=== PATIENT | female | born 1965 | race Caucasian/White ===

== ENCOUNTER 2020-04-20 08:46 | Outpatient (CLI) | payer BC, SELFPAY ==
--- NOTE | ~2020-04-20 | CT_ITS ---
EXAMINATION: CT abdomen pelvis w con INDICATION: Malignant neoplasm of the sigmoid colon TECHNIQUE: Computed tomographic images of the abdomen and pelvis were obtained after the administrati on of 100 cc of Omnipaque 350 intravenous contrast. The dose-length product (DLP) was 292.94 mGy-cm. Automated exposure control and iterative reconstruction technique were employed. COMPARISON: 03/11/2019 FINDINGS: The lung bases are clear. The heart size is normal. Cysts of the liver measure up to 3 mm r ight hepatic lobe. Punctate calcifications in an otherwise normal spleen likely represent healed gran ulomatous disease. The pancreas, gallbladder, and adrenal glands are normal. The kidneys are unremark able. Surgical changes are noted in the sigmoid colon. There is no free intraperitoneal gas or eviden ce of bowel obstruction. No pathologically enlarged abdominal or pelvic lymph nodes are identified. A moderate volume of colonic stool is present. The appendix is normal. There is mild lumbar spondylosi s. IMPRESSION: 1. Surgical changes in the sigmoid colon without evidence of recurrent or metastatic disease. Reviewed, dictated and finalized at location A. NOCHEMIST IMPRESSION: 1. Surgical changes in the sigmoid colon without evidence of recurrent or metas tatic disease.
== END 2020-04-20 08:47 | disposition home or self-care (01) ==
PROVIDERS: PCP Family Medicine; Visit Provider Internal Medicine Medical Oncology
DX: C18.7 Malignant neoplasm of sigmoid colon (principal); M47.816 Spondylosis without myelopathy or radiculopathy, lumbar region
CPT/HCPCS: 74177; Q9967

== ENCOUNTER → 2022-09-20 14:16 | Outpatient (CLI) | payer OTHER, SELFPAY ==
--- NOTE | ~2022-09-20 | MM_ITS ---
EXAMINATION: MM screening ange BI w narendra HISTORY: Screening TECHNIQUE: Craniocaudal and mediolateral oblique 3-D tomosynthesis images were obtained and synthetic 2-D images were generated. CAD analysis was submitted and interpreted. COMPARISON: Comparison to multiple prior studies sequentially, with oldest reviewed study dated 03/18. BREAST PARENCHYMAL COMPOSITION: The breasts are heterogeneously dense, which may obscure small masses FINDINGS: There is no evidence of suspicious mass, calcification, or architectural distortion to sugg est malignancy in either breast. There has been no suspicious interval change. IMPRESSION: 1. No mammographic evidence of malignancy. 2. Recommend routine screening mammography in one year. BI-RADS Category 1: Negative Reviewed, dictated and finalized at location A.
== END ==
PROVIDERS: PCP Obstetrics & Gynecology; Visit Provider Obstetrics & Gynecology
DX: Z12.31 Encounter for screening mammogram for malignant neoplasm of breast (principal)
CPT/HCPCS: 77063; 77067

== ENCOUNTER 2023-08-22 06:53 | Day surgery (SDC) | payer OTHER, SELFPAY ==
[2023-08-01 09:30] VITALS: BMI 23.8
[2023-08-12 12:30] VITALS: BMI 23.3
[2023-08-22 08:03] VITALS: BP 120/93; PULSE 77; RESP 16; TEMP 36.4; O2SAT 100; BMI 24.2
[2023-08-22] MEDS: LACTATED RINGERS 1,000 ML 150 ML IV CONT (08:21)
--- NOTE | 2023-08-22 08:34 | P.PNAN_ITS ---
Anes - Initial Pre Proc Eval Procedure: Operation Date: 08/22/23 09:30 Proposed Procedures p Colonoscopy - Luis Antonio Pyle MD Date/Time: 08/22/23 08:34 Surgeon: Luis Antonio Pyle MD Pre Op Diagnosis: History of Colon Cancer Patient Data Age: 57 Gender: F Height: 1.57 m Weight: 60 kg Last Vital Signs Temp 36.4 C 08/22/23 08:03 Pulse 77 08/22/23 08:03 Resp 16 08/22/23 08:03 BP 120/93 H 08/22/23 08:03 Pulse Ox 100 08/22/23 08:03 O2 Del Method Room Air 08/22/23 08:03 Allergies Allergy/AdvReac Type Severity Reaction Status Date / Time No Known Allergies Allergy Verified 08/22/23 07:57 Home Medications Medication Instructions Recorded Confirmed Type estradiol-norethindrone acet 0.5 1 tablet PO DAILY 08/06/23 08/22/23 History mg-0.1 mg tablet loratadine 10 mg tablet (Claritin) 10 mg PO DAILY PRN ALLERGIES 08/12/23 08/22/23 History Patient hx anesthesia problems: none Family hx anesthesia problems: none Results Review: All pre-operative results and documents have been reviewed as part of the pre- operative evaluation. [facility] Past Medical History Medical History (Updated 08/22/23 @ 08:34 by Kilo Taylor MD) Cancer of sigmoid Surgical History Surgical History (Updated 08/22/23 @ 08:34 by Kilo Taylor MD) H/O colectomy Family History Family History Mother Hypertension Father Malignant neoplasm of prostate Other Diabetes mellitus Family history of allergic disorder Family history of cardiovascular disease Social History Social History Smoking status: Never smoker Alcohol intake: current Drinks per week: 7 Substance use: never Substance use type: does not use Living arrangements: with family Spiritual care concerns: No Anes - Eval Final PreProcedure Day of Procedure 08/22/23 08:34 Patient weight: normal Heart: regular rate and rhythm Lungs: clear to auscultation Airway: Mallampati scale class II Neurological: alert and oriented Last oral intake: >/= 8 hours ASA classification: II Emergent: no Anesthetic plan: proceed Anesthesia type and monitoring: general GIVS and standard monitoring Results Review: All pre-operative results and documents have been reviewed as part of the pre- operative evaluation. Informed Consent: The patient's anesthetic plan and its attendant risks and benefits were discussed with the patient/family/POA. Questions were solicited and answers provided to the satisfaction of the patient/family/POA.
--- NOTE | 2023-08-22 08:40 | PM.HPGS ---
History of Present Illness History of Present Illness Consent: Risks, benefits, and alternatives have been discussed and questions answered. Patient agrees to proceed with procedure. Chief complaint: History of Colon Cancer Narrative: Carmen Roberts is a 57 year old female presents for surveillance colonoscopy. Patient has a history of colon cancer that was stage III resected in 2014. Currently felt to be free of disease. Patient reports that her current weight appetite and bowel movements are normal. Patient denies abdominal pain. She has had no bleeding. Family history is noncontributory. Review of Systems Review of Systems: Review of systems noncontributory. [facility] Past Medical History Medical History (Updated 08/22/23 @ 08:42 by Luis Antonio Pyle MD) Cancer of sigmoid Surgical History Surgical History (Updated 08/22/23 @ 08:34 by Kilo Taylor MD) H/O colectomy Family History Family History Mother Hypertension Father Malignant neoplasm of prostate Other Diabetes mellitus Family history of allergic disorder Family history of cardiovascular disease Social History Social History Smoking status: Never smoker Alcohol intake: current Drinks per week: 7 Substance use: never Substance use type: does not use Living arrangements: with family Spiritual care concerns: No Meds Home Medications and Allergies Home Medications Medication Instructions Recorded Confirmed Type estradiol-norethindrone acet 0.5 1 tablet PO DAILY 08/06/23 08/22/23 History mg-0.1 mg tablet loratadine 10 mg tablet (Claritin) 10 mg PO DAILY PRN ALLERGIES 08/12/23 08/22/23 History Allergies Allergy/AdvReac Type Severity Reaction Status Date / Time No Known Allergies Allergy Verified 08/22/23 07:57 Vital Signs Vital Signs - 24 hr 08/22/23 08:03 Temperature 97.6 F Pulse Rate 77 Respiratory Rate 16 Blood Pressure 120/93 H Pulse Oximetry 100 Oxygen Delivery Room Air Exam Narrative: Physical exam reveals patient to be alert. Vital signs stable. HEENT exam is unremarkable. Patient is anicteric. Lungs are clear to auscultation and percussion. Heart is without murmur or extra sounds. Abdomen bowel sounds are present soft nontender with no organomegaly. Digital external rectal exam normal. Assessment and Plan Assessment and plan (1) History of colon cancer: Code(s): Z85.038 - Personal history of other malignant neoplasm of large intestine Status: Acute Assessment and Plan: Patient has a history of colon cancer of the sigmoid colon resected in 2014. Plan for surveillance colonoscopy at 3 year intervals. Continue complete metabolic panel, CBC and CEA level at least annually.
[2023-08-22] MEDS: SIMETHICONE ORAL SUSPENSION 20 MG/0.3 ML 30 ML BOTTLE 0.6 ML IRRIGATION (09:28)
[2023-08-22 09:34] VITALS: BP 113/66; PULSE 74; RESP 14; O2SAT 99
[2023-08-22 09:44] VITALS: BP 111/67; PULSE 69; RESP 14; O2SAT 100
--- NOTE | 2023-08-22 09:53 | WPDANESPN ---
Anes - Prog Note Post-Op Date/Time: 08/22/23 09:53 Cardiovascular status: normal Respiratory status: normal Airway patency: baseline Mental status: baseline Post-Op hydration status: normal Vital Signs: Last Vital Signs Temp 36.4 C 08/22/23 08:03 Pulse 69 08/22/23 09:44 Resp 14 08/22/23 09:44 BP 111/67 08/22/23 09:44 Pulse Ox 100 08/22/23 09:44 O2 Del Method Room Air 08/22/23 09:44 Pain Score (VAS): 0/10 I/O: Intake & Output 08/21/23 08/22/23 08/22/23 23:59 07:59 15:59 Intake Total 500 Balance 500 Patient Feedback: Patient satisfied with anesthetic care.
[2023-08-22 09:54] VITALS: BP 102/66; PULSE 69; RESP 14; O2SAT 100
== END 2023-08-22 10:02 | disposition home or self-care (01) ==
PROVIDERS: PCP Student in an Organized Health Care Education/Training Program; Visit Provider Internal Medicine Gastroenterology
PROC: 0DJD8ZZ Inspection of Lower Intestinal Tract, Via Natural or Artificial Opening Endoscopic (ICD-10-PCS; CPT 45378; principal; 2023-08-22 09:30)
DX: Z85.038 Personal history of other malignant neoplasm of large intestine (principal); K64.8 Other hemorrhoids
CPT/HCPCS: 45378

== ENCOUNTER 2023-11-25 12:29 | Outpatient (CLI) | payer OTHER, SELFPAY ==
--- NOTE | ~2023-11-25 | MM_ITS ---
EXAMINATION: MM screening ange BI w narendra HISTORY: Screening TECHNIQUE: Craniocaudal and mediolateral oblique 3-D tomosynthesis images were obtained and synthetic 2-D images were generated. CAD analysis was submitted and interpreted. COMPARISON: Comparison to multiple prior studies sequentially, with oldest reviewed study dated 02/05. BREAST PARENCHYMAL COMPOSITION: Dense: The breasts are extremely dense, which lowers the sensitivity of mammography. FINDINGS: There is no evidence of suspicious mass, calcification, or architectural distortion to sugg est malignancy in either breast. There has been no suspicious interval change. IMPRESSION: 1. No mammographic evidence of malignancy. 2. Recommend routine screening mammography in one year. BI-RADS Category 1: Negative Reviewed, dictated and finalized at location B.
== END 2023-11-25 12:30 ==
LOC: MICIMG 12:30
PROVIDERS: PCP Student in an Organized Health Care Education/Training Program; Visit Provider Obstetrics & Gynecology
DX: Z12.31 Encounter for screening mammogram for malignant neoplasm of breast (principal)
CPT/HCPCS: 77063; 77067

== ENCOUNTER 2024-11-26 11:35 | Outpatient (CLI) | payer OTHER, SELFPAY ==
--- NOTE | ~2024-11-26 | MM_ITS ---
EXAMINATION: MM screening ange BI w narendra HISTORY: Screening TECHNIQUE: Craniocaudal and mediolateral oblique 3-D tomosynthesis images were obtained and synthetic 2-D images were generated. CAD analysis was submitted and interpreted. COMPARISON: Comparison to multiple prior studies sequentially, with oldest reviewed study dated 12/13. BREAST PARENCHYMAL COMPOSITION: Dense: The breasts are heterogeneously dense, which may obscure small masses FINDINGS: There is no evidence of suspicious mass, calcification, or architectural distortion to sugg est malignancy in either breast. There has been no suspicious interval change. IMPRESSION: 1. No mammographic evidence of malignancy. 2. Recommend routine screening mammography in one year. BI-RADS Category 1: Negative Reviewed, dictated and finalized at location B.
== END 2024-11-26 11:36 | disposition home or self-care (01) ==
LOC: MICIMG 11:37
PROVIDERS: PCP Student in an Organized Health Care Education/Training Program; Visit Provider Obstetrics & Gynecology
DX: Z12.31 Encounter for screening mammogram for malignant neoplasm of breast (principal)
CPT/HCPCS: 77063; 77067